=== PATIENT | female | born 1990 | race Caucasian/White ===

== ENCOUNTER 2020-12-31 10:04 | Emergency (ER) | payer MEDICAID ==
[~2020-12-31] VITALS: Ht 160 cm; Wt 88.9 kg
[2020-12-31 10:11] VITALS: BP 132/84
--- NOTE | 2020-12-31 10:20 | NUR ---
Patient ambulated with steady gait to bed 4.
--- NOTE | 2020-12-31 10:38 | NUR ---
URINE COLLECTED BEDSIDE AND HANDED TO AREA COORDINATOR
--- NOTE | 2020-12-31 10:41 | NUR ---
30 FEMALE WITH C/O VAGINAL BLEEDING SINCE YESTERDAY. PT STATES SHE STARTED HER MENSTRUAL PERIOD YESTERDAY X2 WEEKS AGO AND STARTED TO BLEED AGAIN YESTERDAY. PT STATED SHE HAS BEENCHANGING TAMPONS EVERY HOUR, WITH LARGE CLOTS AND CRAMPING 5/10 PAIN. PT STATES PAIN IS FELT IN LLQ. RX: MIDOL WITH LITTLE RELIEF MEDHX: DENIES NKA
--- NOTE | 2020-12-31 10:55 | NUR ---
lab bedside collecting blood work
--- NOTE | 2020-12-31 11:00 | NUR ---
US bedside with pt
[2020-12-31 11:04] LABS: BASOPHILS # (AUTO) 0.1 K/uL (0.00-0.22); BASOPHILS % (AUTO) 0.7 % (0.0-2.0); EOSINOPHILS # (AUTO) 0.1 K/uL (0-0.4); EOSINOPHILS % (AUTO) 1.2 % (0.0-4.0); HEMATOCRIT 38.7 % (36-48); HEMOGLOBIN 12.9 g/dL (12.0-16.0); LYMPHOCYTES # (AUTO) 2.5 K/uL (2.5-16.5); LYMPHOCYTES % (AUTO) 32.5 % (20.5-51.1); MEAN CORPUSCULAR HEMOGLOBIN 28 pg (27-31); MEAN CORPUSCULAR HGB CONC 33 g/dL (33-37); MEAN CORPUSCULAR VOLUME 83.8 fL (80-94); MONOCYTES # (AUTO) 0.4 K/uL (0.8-1.0); MONOCYTES % (AUTO) 5.4 % (1.7-9.3); NEUTROPHILS # (AUTO) 4.6 K/uL (1.8-7.7); NEUTROPHILS % (AUTO) 60.2 % (42.2-75.2); PLATELET COUNT (AUTO) 314 K/uL (140-450); RED BLOOD CELL COUNT(AUTO) 4.62 MIL/uL (4.20-5.40); RED CELL DISTRIBUTION WIDTH 13.2 % (11.6-13.7); WHITE BLOOD COUNT (AUTO) 7.7 K/uL (4.8-10.8)
[2020-12-31 11:25] LABS: APPEARANCE,URINE CLOUDY (CLEAR); BILIRUBIN,URINE NEGATIVE (NEGATIVE); BLOOD, URINE 3+ (NEGATIVE); COLOR,URINE RED (YELLOW); LEUKOCYTE ESTERASE ,URINE NEGATIVE (NEGATIVE); NITRITE, URINE POSITIVE (NEGATIVE); PH,URINE 5.5 (5.0-9.0); UGLUCOSE NEGATIVE (NEGATIVE)
[2020-12-31 11:43] LABS: RBC,URINE TOO NUMEROUS TO COUN /HPF (0-5); WBC,URINE 0-5 /HPF (0-5)
--- NOTE | 2020-12-31 12:20 | NUR ---
Female Licensed Prosthetist accompanied female patient for Pelvic Exam.
[2020-12-31] MEDS ORDERED: ACET-8386 PO (12:29)
[2020-12-31] MEDS ORDERED: NAPR-54 PO (12:29)
[2020-12-31 12:38] VITALS: BP 118/76
--- NOTE | 2020-12-31 12:38 | NUR ---
Patient discharged with v/s stable. Written and verbal after care instructions ABOUT OVARIAN CYST AND UTERINE BLEEDING given and explained. Patient alert, oriented and verbalized understanding of instructions. Ambulatory with steady gait. All questions addressed prior to discharge. ID band removed. Patient advised to follow up with PMD. Rx of NAPROXEN AND HYDROCODONE/ACETAMINIOPHEN given. Patient educated on indication of medication including possible reaction and side effects. Opportunity to ask questions provided and answered.
== END 2020-12-31 12:38 | disposition home or self-care (01) ==
LOC: MED 10:04
DX: N83.01 Follicular cyst of right ovary (principal); N39.8 Other specified disorders of urinary system
CPT/HCPCS: 36415; 76856; 81001; 81025; 85025; 99284; Q0092

== ENCOUNTER 2021-04-26 22:57 | Emergency (ER) | payer MEDICAID ==
[~2021-04-26] VITALS: Ht 162.6 cm; Wt 92.1 kg
[~2021-04-26 22:57] MED LIST: ACET-8386 PO; NAPR-54 PO
[2021-04-26 23:03] VITALS: BP 145/90
--- NOTE | 2021-04-26 23:06 | NUR ---
TO LOBBY A/W BED AMBULATORY
--- NOTE | 2021-04-26 23:20 | NUR ---
swab for Novel sent to lab
--- NOTE | 2021-04-27 00:10 | NUR ---
seen and examined by jorge
[2021-04-27] MEDS ORDERED: IBUPROFEN 600 MG TAB PO ONE (00:15)
[2021-04-27] MEDS ORDERED: ACETAMINOPHEN EXTRA STRENGTH 500 MG TAB PO ONE (00:15)
[2021-04-27] MEDS ORDERED: IBUP-2213 PO (00:18)
[2021-04-27] MEDS ORDERED: ACET-10509 PO (00:18)
[2021-04-27] MEDS ORDERED: ROB PO (00:19)
--- NOTE | 2021-04-27 00:25 | NUR ---
medicated as per Ermds order,tolerated well
[2021-04-27 00:50] VITALS: BP 128/78
--- NOTE | 2021-04-27 00:50 | NUR ---
Patient discharged with v/s stable. Written and verbal after care instructions given and explained. Patient alert, oriented and verbalized understanding of instructions. Ambulatory with steady gait. All questions addressed prior to discharge. ID band removed. Patient advised to follow up with PMD. Rx of tylenol, ibuprofen ,guaifenesin given. Patient educated on indication of medication including possible reaction and side effects. Opportunity to ask questions provided and answered.
== END 2021-04-27 00:50 | disposition home or self-care (01) ==
LOC: MED 22:57
DX: U07.1 COVID-19 (principal)
CPT/HCPCS: 99283; U0003

== ENCOUNTER 2021-07-06 09:16 | Emergency (ER) | payer BC, MEDICAID ==
[~2021-07-06] VITALS: Ht 160 cm; Wt 90.7 kg
[~2021-07-06 09:16] MED LIST changes: +ACET-10509 PO; +IBUP-2213 PO; +ROB PO
[2021-07-06 09:41] VITALS: BP 121/77
[2021-07-06] MEDS ORDERED: HYDROcodone/APAP 5/325 MG 1 TAB TAB PO ONE (09:45)
[2021-07-06 10:37] LABS: APPEARANCE,URINE CLEAR (CLEAR); BILIRUBIN,URINE NEGATIVE (NEGATIVE); BLOOD, URINE NEGATIVE (NEGATIVE); COLOR,URINE YELLOW (YELLOW); LEUKOCYTE ESTERASE ,URINE NEGATIVE (NEGATIVE); NITRITE, URINE NEGATIVE (NEGATIVE); UGLUCOSE NEGATIVE (NEGATIVE)
--- NOTE | 2021-07-06 11:20 | NUR ---
PT C/O LLQ ABDOMINAL PAIN WITH N/V SINCE 399. PT C/O 5/10 PAIN AT THIS TIME. US AT BEDSIDE.
[2021-07-06 11:26] LABS: BASOPHILS # (AUTO) 0.1 K/uL (0.00-0.22); BASOPHILS % (AUTO) 1.1 % (0.0-2.0); EOSINOPHILS % (AUTO) 0.5 % (0.0-4.0); HEMATOCRIT 37.7 % (36-48); HEMOGLOBIN 12.7 g/dL (12.0-16.0); LYMPHOCYTES # (AUTO) 2.5 K/uL (2.5-16.5); LYMPHOCYTES % (AUTO) 32.5 % (20.5-51.1); MEAN CORPUSCULAR HEMOGLOBIN 27 pg (27-31); MEAN CORPUSCULAR HGB CONC 34 g/dL (33-37); MEAN CORPUSCULAR VOLUME 79.3 fL (80-94); MONOCYTES # (AUTO) 0.5 K/uL (0.8-1.0); MONOCYTES % (AUTO) 6.3 % (1.7-9.3); NEUTROPHILS # (AUTO) 4.7 K/uL (1.8-7.7); NEUTROPHILS % (AUTO) 59.6 % (42.2-75.2); PLATELET COUNT (AUTO) 327 K/uL (140-450); RED BLOOD CELL COUNT(AUTO) 4.75 MIL/uL (4.20-5.40); RED CELL DISTRIBUTION WIDTH 15.3 % (11.6-13.7); WHITE BLOOD COUNT (AUTO) 7.8 K/uL (4.8-10.8)
[2021-07-06 11:50] LABS: ALBUMIN 3.4 g/dL (3.4-5.0); ANION GAP 13.7 (8-16); CARBON DIOXIDE 26.3 mmol/L (21-32); CREATININE 0.7 mg/dL (0.6-1.3); TOTAL BILIRUBIN 0.4 mg/dL (0.0-1.0)
--- NOTE | 2021-07-06 14:20 | NUR ---
PT PENDING REPEAT DRAW OF HCG LEVEL
--- NOTE | 2021-07-06 14:35 | NUR ---
per dr buckner ok to dc pt home prior to hcg quant results finalized. states will call pt to make aware.
[2021-07-06 14:40] VITALS: BP 124/70
--- NOTE | 2021-07-06 14:41 | NUR ---
Patient discharged with v/s stable. Written and verbal after care instructions given and explained. Patient verbalized understanding. Ambulatory with steady gait. All questions addressed prior to discharge. Advised to follow up with PMD.
== END 2021-07-06 14:40 | disposition home or self-care (01) ==
LOC: MED 09:16
DX: O21.8 Other vomiting complicating pregnancy (principal); O26.891 Other specified pregnancy related conditions, first trimester; R10.32 Left lower quadrant pain; R11.0 Nausea; R21 Rash and other nonspecific skin eruption; Z79.899 Other long term (current) drug therapy; Z98.890 Other specified postprocedural states
CPT/HCPCS: 36415; 76856; 80053; 81025; 84702; 84703; 85025; 93976; 99291; Q0092

== ENCOUNTER 2021-09-12 17:52 | Emergency (ER) | payer BC, MEDICAID ==
--- NOTE | 2021-09-12 18:24 | NUR ---
PATIENT LEFT WITHOUT BEING SEEN BY DR. JOSHI. NO FURTHER CARE PROVIDED FOR PATIENT.
[2021-09-13] MEDS ORDERED: ACET-2619 PO (13:58)
== END 2021-09-12 18:24 | disposition left against medical advice (07) ==
LOC: MED 17:52
DX: R10.9 Unspecified abdominal pain (principal); Z53.21 Procedure and treatment not carried out due to patient leaving prior to being seen by health care provider

== ENCOUNTER 2021-09-13 08:13 | Emergency (ER) | payer BC, MEDICAID ==
[~2021-09-13] VITALS: Ht 162.6 cm; Wt 91.6 kg
[2021-09-13 08:27] VITALS: BP 122/65
[2021-09-13] MEDS ORDERED: NACL 0.9% 1,000 ML IV ONE (08:45)
[2021-09-13] MEDS ORDERED: ACETAMINOPHEN 325 MG TAB PO ONE (08:45)
[2021-09-13] MEDS ORDERED: MORPHINE SULFATE 4 MG/ML SYR IVP ONE (08:45)
[2021-09-13 09:05] LABS: BASOPHILS % (AUTO) 0.3 % (0.0-2.0); EOSINOPHILS # (AUTO) 0.1 K/uL (0-0.4); HEMATOCRIT 37.1 % (36-48); HEMOGLOBIN 12.3 g/dL (12.0-16.0); LYMPHOCYTES # (AUTO) 2.6 K/uL (2.5-16.5); LYMPHOCYTES % (AUTO) 30.2 % (20.5-51.1); MEAN CORPUSCULAR HEMOGLOBIN 27 pg (27-31); MEAN CORPUSCULAR HGB CONC 33 g/dL (33-37); MEAN CORPUSCULAR VOLUME 80.8 fL (80-94); MONOCYTES # (AUTO) 0.6 K/uL (0.8-1.0); MONOCYTES % (AUTO) 6.5 % (1.7-9.3); NEUTROPHILS # (AUTO) 5.4 K/uL (1.8-7.7); PLATELET COUNT (AUTO) 296 K/uL (140-450); RED BLOOD CELL COUNT(AUTO) 4.59 MIL/uL (4.20-5.40); RED CELL DISTRIBUTION WIDTH 13.7 % (11.6-13.7); WHITE BLOOD COUNT (AUTO) 8.7 K/uL (4.8-10.8)
[2021-09-13 09:30] LABS: ALBUMIN 2.8 g/dL (3.4-5.0); ANION GAP 13.1 (8-16); CARBON DIOXIDE 22.4 mmol/L (21-32); CREATININE 0.5 mg/dL (0.6-1.3); POTASSIUM 3.5 mmol/L (3.5-5.1); TOTAL BILIRUBIN 0.2 mg/dL (0.0-1.0)
--- NOTE | 2021-09-13 09:30 | NUR ---
31/F C/O LLQ SHARP PAIN SINCE YESTERDAY 11/06 , DENIES N/V/D OR DYSURIA. DENIES TAKING MEDICATION FOR PAIN. STATES CURRENTLY 16 WEEKS , A0. PMH: HX OF OVARIAN CYSTS HERIBERTOA
--- NOTE | 2021-09-13 09:31 | NUR ---
URINE HANDED TO HENRY
--- NOTE | 2021-09-13 09:36 | NUR ---
ARNOLDO AT BEDSIDE
[2021-09-13 09:41] LABS: APPEARANCE,URINE CLEAR (CLEAR); BILIRUBIN,URINE NEGATIVE (NEGATIVE); BLOOD, URINE NEGATIVE (NEGATIVE); COLOR,URINE YELLOW (YELLOW); LEUKOCYTE ESTERASE ,URINE NEGATIVE (NEGATIVE); NITRITE, URINE NEGATIVE (NEGATIVE); UGLUCOSE NEGATIVE (NEGATIVE)
[2021-09-13 12:57] VITALS: BP 105/74
[2021-09-13] MEDS ORDERED: ACET-2619 PO (13:58)
[2021-09-13] MEDS ORDERED: HYDROcodone/APAP 5/325 MG 1 TAB TAB PO ONE (14:00)
== END 2021-09-13 14:11 | disposition home or self-care (01) ==
LOC: MED 08:13
DX: O26.92 Pregnancy related conditions, unspecified, second trimester (principal); R10.2 Pelvic and perineal pain; Z3A.16 16 weeks gestation of pregnancy
CPT/HCPCS: 36415; 76805; 80053; 81003; 83690; 85025; 96361; 96374; 99284; J2270; J7030; Q0092

== ENCOUNTER 2024-02-18 14:56 | Emergency (ER) | payer BC, MEDICAID ==
[~2024-02-18] VITALS: Ht 160 cm; Wt 95.9 kg
[~2024-02-18 14:56] MED LIST changes: -ACET-10509 PO; +ACET-2619 PO; -ACET-8386 PO; +ACET-8905 PO; +ACET500T99 PO; +NAPR-337 PO; -NAPR-54 PO
[2024-02-18 15:12] VITALS: BP 127/73; PULSE 71; RESP 18; TEMP 97.3; O2SAT 98
[2024-02-18 15:15] VITALS: O2SAT 98
[2024-02-18 16:12] LABS: BASOPHILS % (AUTO) 0.4 % (0.0-2.0); EOSINOPHILS # (AUTO) 0.1 K/uL (0-0.4); EOSINOPHILS % (AUTO) 0.6 % (0.0-4.0); HEMATOCRIT 41.2 % (36-48); HEMOGLOBIN 13.5 g/dL (12.0-16.0); LYMPHOCYTES # (AUTO) 2.9 K/uL (2.5-16.5); LYMPHOCYTES % (AUTO) 29.2 % (20.5-51.1); MEAN CORPUSCULAR HEMOGLOBIN 27 pg (27-31); MEAN CORPUSCULAR HGB CONC 33 g/dL (33-37); MEAN CORPUSCULAR VOLUME 82.2 fL (80-94); MONOCYTES # (AUTO) 0.6 K/uL (0.8-1.0); MONOCYTES % (AUTO) 5.9 % (1.7-9.3); NEUTROPHILS # (AUTO) 6.3 K/uL (1.8-7.7); NEUTROPHILS % (AUTO) 63.9 % (42.2-75.2); PLATELET COUNT (AUTO) 327 K/uL (140-450); RED BLOOD CELL COUNT(AUTO) 5.01 MIL/uL (4.20-5.40); RED CELL DISTRIBUTION WIDTH 13.9 % (11.6-13.7); WHITE BLOOD COUNT (AUTO) 9.9 K/uL (4.8-10.8)
[2024-02-18 16:25] LABS: APPEARANCE,URINE CLEAR (CLEAR); BILIRUBIN,URINE NEGATIVE (NEGATIVE); BLOOD, URINE NEGATIVE (NEGATIVE); COLOR,URINE YELLOW (YELLOW); LEUKOCYTE ESTERASE ,URINE NEGATIVE (NEGATIVE); NITRITE, URINE NEGATIVE (NEGATIVE); PROTEIN,URINE NEGATIVE (NEGATIVE); UGLUCOSE NEGATIVE (NEGATIVE); UROBILINOGEN,URINE 0.2 EU/dL (0.2 - 1)
[2024-02-18 16:25] LABS: CALCIUM 9.2 mg/dL (8.5-10.1); CARBON DIOXIDE 25.8 mmol/L (21-32); CREATININE 0.9 mg/dL (0.6-1.3)
[2024-02-18 16:27] LABS: ANION GAP 10.9 (8-16); POTASSIUM 3.7 mmol/L (3.5-5.1)
[2024-02-18 16:32] LABS: ALBUMIN 3.4 g/dL (3.4-5.0); BILIRUBIN,DIRECT 0.1 mg/dL (0.0-0.3); TOTAL BILIRUBIN 0.3 mg/dL (0.0-1.0); TOTAL PROTEIN, SERUM 7.9 g/dL (6.4-8.2)
[2024-02-18] MEDS ORDERED: ACET500T99 PO (17:25)
[2024-02-18] MEDS ORDERED: ONDA-188 SL (17:25)
[2024-02-18] MEDS ORDERED: IBUP-2218 PO (17:25)
== END 2024-02-18 17:34 | disposition home or self-care (01) ==
LOC: MED 14:56
DX: K80.20 Calculus of gallbladder without cholecystitis without obstruction (principal); Z79.899 Other long term (current) drug therapy
CPT/HCPCS: 36415; 76705; 80048; 80076; 81003; 81025; 83690; 85025; 99284